=== PATIENT | female | born 1980 | race Native Hawaiian/Other Pacific Islander ===

== ENCOUNTER 2018-02-09 12:17 | Emergency (ER) | payer OTHER ==
[~2018-02-09] VITALS: Ht 157.5 cm; Wt 74.8 kg
[2018-02-09 12:34] VITALS: TEMP 98.1
[2018-02-09 12:57] VITALS: BP 148/82
== END 2018-02-09 12:58 | disposition home or self-care (01) ==
LOC: ED 12:17
DX: R56.9 Unspecified convulsions (principal)
CPT/HCPCS: 99281